=== PATIENT | female | born 1940 | race Caucasian/White ===

== ENCOUNTER 2017-05-01 10:22 | Inpatient (IN) | payer OTHER ==
[~2017-05-01] VITALS: Ht 157.5 cm; Wt 84.2 kg
[2017-05-01] MEDS ORDERED: SODIUM CHLORIDE 0.9% 1,000 ML IV ONE (10:45)
[2017-05-01] MEDS ORDERED: ISOS30TA8 PO (10:50)
[2017-05-01] MEDS ORDERED: PANT20TA3 PO (10:50)
[2017-05-01] MEDS ORDERED: SUCR1TAB PO (10:50)
[2017-05-01] MEDS ORDERED: LOSA50TA6 PO (10:50)
[2017-05-01] MEDS ORDERED: METO25TA2 PO (10:50)
[2017-05-01 10:52] VITALS: BP 154/82
[2017-05-01 11:16] LABS: HEMATOCRIT 45.1 % (34.6-47.8); HEMOGLOBIN 15.3 g/dL (11.7-16.4); WHITE BLOOD COUNT 4.7 x10^3/uL (3.4-10)
[2017-05-01 11:28] LABS: ASPARTATE AMINO TRANSFERASE 39 U/L (15-37); BLOOD UREA NITROGEN 20 mg/dL (7-18)
[2017-05-01] MEDS ORDERED: MIDAZOLAM 1 MG/ML, 5ML ONE (13:53)
[2017-05-01] MEDS ORDERED: VERAPAMIL 2.5 MG/ML, 2ML ONE (13:53)
[2017-05-01] MEDS ORDERED: FENTANYL PF 100 MCG/2ML ONE (13:53)
[2017-05-01] MEDS ORDERED: LIDOCAINE 2%, 20ML ONE (13:54)
[2017-05-01] MEDS ORDERED: HEPARIN 1,000 UNITS/ML, 10ML ONE (13:54)
[2017-05-01] MEDS ORDERED: TICAGRELOR 90 MG TABLET ONE (13:54)
[2017-05-01] MEDS ORDERED: BIVALIRUDIN 250 MG ONE (13:54)
[2017-05-01] MEDS ORDERED: SODIUM CHLORIDE 0.9% 1,000 ML IV SCH (15:30)
[2017-05-01] MEDS ORDERED: MORPHINE SULFATE 4 MG/ML, 1ML IVPush PRN (16:00)
[2017-05-01] MEDS ORDERED: SUCRALFATE 1 GM TABLET PO PRN (17:30)
[2017-05-01] MEDS: PANTOPRAZOLE 20MG TABLET PO SCH (18:15)
[2017-05-01 19:26] VITALS: BP 145/72
[2017-05-01] MEDS ORDERED: ONDANSETRON 2MG/ML, 2ML IVPush PRN (21:00)
[2017-05-01] MEDS ORDERED: ACETAMINOPHEN 325 MG TABLET PO PRN (21:00)
[2017-05-01] MEDS ORDERED: ZOLPIDEM 5MG TABLET PO PRN (21:00)
[2017-05-01] MEDS: ATORVASTATIN 80 MG TABLET PO SCH (21:10)
[2017-05-02 00:54] VITALS: BP 122/71
[2017-05-02] MEDS ORDERED: METOPROLOL SUCCINATE 25 MG TAB.ER.24H PO SCH (06:00)
[2017-05-02] MEDS ORDERED: PHENYLEPHRINE 10 MG in SODIUM CHLORIDE 0.9% 249 ML IV PRN (07:30)
[2017-05-02] MEDS ORDERED: POTASSIUM CHLORIDE 80 MEQ, SODIUM BICARBONATE 8.4% 10 MEQ, MAGNESIUM SULFATE 0.5 GM, LI... IV PRN (07:30)
[2017-05-02] MEDS ORDERED: DEXMEDETOMIDINE 200 MCG in SODIUM CHLORIDE 0.9% 48 ML IV SCH (07:30)
[2017-05-02] MEDS ORDERED: MANNITOL PMX 20% 500 ML IVPB PRN (07:30)
[2017-05-02] MEDS ORDERED: REGULAR INSULIN 62.5 UNITS in SODIUM CHLORIDE 0.9% 249.375 ML IV PRN (07:30)
[2017-05-02] MEDS ORDERED: EPINEPHRINE 2 MG in SODIUM CHLORIDE 0.9% 248 ML IV SCH (07:30)
[2017-05-02 07:36] VITALS: BP 119/71
[2017-05-02] MEDS: PANTOPRAZOLE 20MG TABLET PO SCH (08:24)
[2017-05-02] MEDS: LOSARTAN 50MG TABLET PO SCH (08:24)
[2017-05-02] MEDS ORDERED: ISOSORBIDE MONONITRATE ER 30 MG TABLET PO SCH (09:00)
[2017-05-02 13:27] VITALS: BP 111/68
[2017-05-02] MEDS ORDERED: ALBUMIN HUMAN 5% 500 ML IV ONE (15:30)
[2017-05-02] MEDS ORDERED: CHLORHEXIDINE MOUTHWASH 15 ML UDC MM PRN (15:30)
[2017-05-02] MEDS ORDERED: METOPROLOL TARTRATE 25 MG TABLET PO ONE (15:30)
[2017-05-02 16:11] LABS: HEMOGLOBIN 13.9 g/dL (11.7-16.4); WHITE BLOOD COUNT 5.1 x10^3/uL (3.4-10)
[2017-05-02 16:20] LABS: ASPARTATE AMINO TRANSFERASE 30 U/L (15-37); BLOOD UREA NITROGEN 17 mg/dL (7-18)
[2017-05-02 19:30] VITALS: BP 117/55
[2017-05-02] MEDS ORDERED: SODIUM CHLORIDE FLUSH 10ML SYR IVF SCH (21:00)
[2017-05-02] MEDS: ATORVASTATIN 80 MG TABLET PO SCH (21:52)
[2017-05-02] MEDS: MUPIROCIN OINT 2%, 22GM TP SCH (22:18)
[2017-05-02 23:27] LABS: PATH.CAST-FLAG NOT PRESENT; SPERM-FLAG NOT PRESENT; SRC-FLAG NOT PRESENT; XTAL-FLAG NOT PRESENT; YLC-FLAG NOT PRESENT
[2017-05-03] MEDS ORDERED: ALBUMIN HUMAN 5% 500 ML IV ONE (02:00)
[2017-05-03 03:20] VITALS: BP 121/76
[2017-05-03 04:23] VITALS: BP_SYST 136; BP_SYST 149; BP_DIAS 68; BP_DIAS 70
[2017-05-03] MEDS: MUPIROCIN OINT 2%, 22GM TP SCH (05:12)
[2017-05-03] MEDS: INSULIN ASPART 100 UNITS/ML, PEN SQ-INSULIN SCH (05:35)
[2017-05-03] MEDS ORDERED: FENTANYL PF 1000 MCG/20ML ONE (06:43)
[2017-05-03] MEDS ORDERED: MIDAZOLAM 10MG/2 ML ONE (06:44)
[2017-05-03] MEDS ORDERED: MANNITOL PMX 20% 500 ML IVPB PRN (07:30)
[2017-05-03] MEDS ORDERED: POTASSIUM CHLORIDE 80 MEQ, SODIUM BICARBONATE 8.4% 10 MEQ, MAGNESIUM SULFATE 0.5 GM, LI... IV PRN ×2 (07:30)
[2017-05-03] MEDS ORDERED: VANCOMYCIN 1,200 MG in SODIUM CHLORIDE 0.9% 250 ML IVPB PRN (07:30)
[2017-05-03] MEDS ORDERED: DEXMEDETOMIDINE 200 MCG in SODIUM CHLORIDE 0.9% 48 ML IV SCH (07:30)
[2017-05-03] MEDS ORDERED: EPINEPHRINE 2 MG in SODIUM CHLORIDE 0.9% 248 ML IV SCH (07:30)
[2017-05-03] MEDS ORDERED: CEFUROXIME 1.5 GM in SODIUM CHLORIDE 0.9% 50 ML IVPB PRN (07:30)
[2017-05-03] MEDS ORDERED: REGULAR INSULIN 62.5 UNITS in SODIUM CHLORIDE 0.9% 249.375 ML IV PRN ×2 (07:30→10:08)
[2017-05-03] MEDS ORDERED: PHENYLEPHRINE 10 MG in SODIUM CHLORIDE 0.9% 249 ML IV PRN ×2 (07:30→10:08)
[2017-05-03] MEDS ORDERED: AMINOCAPROIC ACID 250 MG/ML, 20ML ONE (09:37)
[2017-05-03] MEDS ORDERED: PROTAMINE SULFATE 10 MG/ML, 25ML ONE (09:37)
[2017-05-03] MEDS ORDERED: ALBUMIN HUMAN 25% 100 ML ONE (09:37)
[2017-05-03] MEDS ORDERED: HEPARIN 1,000 UNITS/ML, 30ML ONE (09:37)
[2017-05-03] MEDS ORDERED: CALCIUM CHLORIDE 10%, 10ML SYR ONE ×2 (09:37→10:19)
[2017-05-03] MEDS ORDERED: LIDOCAINE 2% 100MG/5ML SYRINGE ONE (09:38)
[2017-05-03] MEDS ORDERED: PAPAVERINE 30 MG/ML, 2ML ONE (09:38)
[2017-05-03] MEDS ORDERED: HEPARIN 1,000 UNITS/ML, 10ML ONE (09:38)
[2017-05-03] MEDS ORDERED: NITROGLYCERIN/D5W PMX 250 ML IV PRN (10:08)
[2017-05-03] MEDS ORDERED: DEXMEDETOMIDINE 200 MCG in SODIUM CHLORIDE 0.9% 48 ML IV PRN (10:08)
[2017-05-03] MEDS ORDERED: SODIUM CHLORIDE 0.9% 1,000 ML IV PRN (10:08)
[2017-05-03] MEDS ORDERED: DOBUTAMINE 250 MG in SODIUM CHLORIDE 0.9% 230 ML IV PRN (10:08)
[2017-05-03] MEDS ORDERED: ROCURONIUM 10 MG/ML ONE (10:19)
[2017-05-03] MEDS ORDERED: PROPOFOL 10 MG/ML, 20ML ONE (10:19)
[2017-05-03] MEDS: LOSARTAN 50MG TABLET PO SCH (10:29)
[2017-05-03] MEDS ORDERED: ACETAMINOPHEN 325 MG TABLET PO PRN (10:30)
[2017-05-03] MEDS ORDERED: VANCOMYCIN 900 MG in SODIUM CHLORIDE 0.9% 250 ML IVPB SCH (10:30)
[2017-05-03] MEDS ORDERED: ACETAMINOPHEN 650 MG SUPP PR PRN (10:30)
[2017-05-03] MEDS ORDERED: SODIUM BICARB 8.4%, 50ML SYRINGE IV PRN (10:30)
[2017-05-03] MEDS ORDERED: PROCHLORPERAZINE 5 MG/ML, 2ML IVPush PRN (10:30)
[2017-05-03] MEDS ORDERED: DEXTROSE 4 GM TAB.CHEW PO PRN (10:30)
[2017-05-03] MEDS ORDERED: DEXTROSE 50%, 50ML SYRINGE IVPush PRN (10:30)
[2017-05-03] MEDS ORDERED: EPINEPHRINE 2 MG in SODIUM CHLORIDE 0.9% 248 ML IV PRN (10:30)
[2017-05-03] MEDS ORDERED: MEPERIDINE/PF 25MG/0.5ML IVPush PRN (10:30)
[2017-05-03] MEDS ORDERED: MIDAZOLAM 1 MG/ML, 5ML IVPush PRN (10:30)
[2017-05-03] MEDS ORDERED: GLUCAGON 1 MG IM PRN (10:30)
[2017-05-03] MEDS ORDERED: LACTATED RINGERS 500 ML IVBOLUS PRN (10:30)
[2017-05-03] MEDS ORDERED: CEFUROXIME 1.5 GM in SODIUM CHLORIDE 0.9% 50 ML IVPB SCH (10:30)
[2017-05-03] MEDS ORDERED: BISACODYL 10 MG SUPP PR PRN (10:30)
[2017-05-03] MEDS ORDERED: BISACODYL 5 MG EC TABLET PO PRN (10:30)
[2017-05-03] MEDS: MAGNESIUM SULFATE 1 GM in SODIUM CHLORIDE 0.9% 50 ML IVPB SCH (10:37)
[2017-05-03 11:07] LABS: ABG COLLECTION SITE ARTERIAL LINE
[2017-05-03 11:08] LABS: FIO2 40 %
[2017-05-03 11:20] LABS: HEMATOCRIT 32.9 % (34.6-47.8)
[2017-05-03] MEDS: KSCALE TO 4.5 IV SCH ×3 (11:30→22:30)
[2017-05-03] MEDS ORDERED: MORPHINE SULFATE 4 MG/ML, 1ML ONE ×2 (15:29→17:46)
[2017-05-03] MEDS: morphine SULFATE 10 MG/ML, 1ML IVPush PRN ×2 (15:31→18:17)
[2017-05-03 16:27] LABS: HEMATOCRIT 34.1 % (34.6-47.8); HEMOGLOBIN 11.4 g/dL (11.7-16.4)
[2017-05-03] MEDS: OXYcodone IR 5MG TABLET PO PRN ×2 (17:21→22:26)
[2017-05-03] MEDS: CEFUROXIME 1.5 GM in SODIUM CHLORIDE 0.9% 50 ML IV SCH (19:31)
[2017-05-03] MEDS: DOCUSATE 100 MG CAPSULE PO SCH (20:01)
[2017-05-03] MEDS: HYDROcodone/APAP 10/325 MG TABLET PO PRN (20:01)
[2017-05-03] MEDS: VANCOMYCIN 900 MG in SODIUM CHLORIDE 0.9% 250 ML IVPB SCH (20:01)
[2017-05-03] MEDS: SODIUM CHLORIDE FLUSH 10ML SYR IVF SCH (20:01)
[2017-05-03] MEDS: MUPIROCIN OINT 2%, 22GM NAS SCH (20:01)
[2017-05-03] MEDS: ATORVASTATIN 80 MG TABLET PO SCH (21:33)
[2017-05-03 22:31] LABS: HEMATOCRIT 33.7 % (34.6-47.8); HEMOGLOBIN 11.4 g/dL (11.7-16.4)
[2017-05-04] MEDS: ONDANSETRON 2MG/ML, 2ML IVPush PRN ×2 (00:39→08:59)
[2017-05-04] MEDS: HYDROcodone/APAP 10/325 MG TABLET PO PRN ×2 (00:39→03:59)
[2017-05-04] MEDS: INSULIN ASPART 100 UNITS/ML, PEN SQ-INSULIN PRN ×4 (01:36→21:00)
[2017-05-04 04:05] LABS: ABG COLLECTION SITE NOT DOCUMENTED
[2017-05-04 04:11] LABS: HEMATOCRIT 33.9 % (34.6-47.8); HEMOGLOBIN 11.4 g/dL (11.7-16.4); WHITE BLOOD COUNT 9.6 x10^3/uL (3.4-10)
[2017-05-04 04:19] LABS: BLOOD UREA NITROGEN 19 mg/dL (7-18)
[2017-05-04] MEDS: KSCALE TO 4.5 IV SCH (04:30)
[2017-05-04] MEDS: OXYcodone IR 5MG TABLET PO PRN ×4 (06:00→20:54)
[2017-05-04] MEDS: CEFUROXIME 1.5 GM in SODIUM CHLORIDE 0.9% 50 ML IV SCH (07:18)
[2017-05-04] MEDS: VANCOMYCIN 900 MG in SODIUM CHLORIDE 0.9% 250 ML IVPB SCH (07:23)
[2017-05-04] MEDS ORDERED: MAGNESIUM HYDROXIDE 8%, 30ML UDC PO PRN (08:00)
[2017-05-04] MEDS: LOSARTAN 50MG TABLET PO SCH (08:40)
[2017-05-04] MEDS: PANTOPRAZOLE 40 MG IV IVPush SCH (08:40)
[2017-05-04] MEDS: DOCUSATE 100 MG CAPSULE PO SCH ×2 (08:40→20:54)
[2017-05-04] MEDS: ASPIRIN 81 MG TABLET EC PO SCH (08:40)
[2017-05-04] MEDS: METOPROLOL TARTRATE 25 MG TABLET PO/NG SCH ×2 (08:40→21:00)
[2017-05-04] MEDS: MUPIROCIN OINT 2%, 22GM NAS SCH ×2 (08:41→20:54)
[2017-05-04] MEDS: SODIUM CHLORIDE FLUSH 10ML SYR IVF SCH ×3 (08:42→21:00)
[2017-05-04] MEDS: FUROSEMIDE 20 MG/2 ML IV SCH (08:42)
[2017-05-04] MEDS: CHLORHEXIDINE MOUTHWASH 15 ML UDC MM SCH ×2 (08:51→20:55)
[2017-05-04] MEDS: MAGNESIUM SULFATE 1 GM in SODIUM CHLORIDE 0.9% 50 ML IVPB SCH (10:00)
[2017-05-04] MEDS: INSULIN ASPART 100 UNITS/ML, PEN SQ-INSULIN SCH (10:11)
[2017-05-04] MEDS ORDERED: GLUCAGON 1 MG IM PRN (19:30)
[2017-05-04] MEDS ORDERED: BISACODYL 5 MG EC TABLET PO PRN (19:30)
[2017-05-04] MEDS ORDERED: ACETAMINOPHEN 650 MG SUPP PR PRN (19:30)
[2017-05-04] MEDS ORDERED: ACETAMINOPHEN 325 MG TABLET PO PRN (19:30)
[2017-05-04] MEDS ORDERED: BISACODYL 10 MG SUPP PR PRN (19:30)
[2017-05-04 20:50] VITALS: BP 105/58
[2017-05-04] MEDS: ATORVASTATIN 80 MG TABLET PO SCH (20:54)
[2017-05-04] MEDS ORDERED: SODIUM CHLORIDE FLUSH 10ML SYR IVF SCH (21:00)
[2017-05-05] MEDS: OXYcodone IR 5MG TABLET PO PRN ×4 (00:25→19:46)
[2017-05-05 03:24] VITALS: BP 117/63
[2017-05-05 04:27] LABS: BLOOD UREA NITROGEN 22 mg/dL (7-18)
[2017-05-05 04:30] LABS: HEMATOCRIT 33.3 % (34.6-47.8); HEMOGLOBIN 11.4 g/dL (11.7-16.4)
[2017-05-05 06:37] VITALS: BP 95/57
[2017-05-05] MEDS: SODIUM CHLORIDE FLUSH 10ML SYR IVF SCH ×4 (08:31→19:47)
[2017-05-05] MEDS: DOCUSATE 100 MG CAPSULE PO SCH ×2 (08:31→19:46)
[2017-05-05] MEDS: PANTOPRAZOLE 40 MG IV IVPush SCH (08:31)
[2017-05-05] MEDS: MUPIROCIN OINT 2%, 22GM NAS SCH ×2 (08:32→19:47)
[2017-05-05] MEDS: LOSARTAN 50MG TABLET PO SCH ×2 (08:32→11:05)
[2017-05-05] MEDS: ASPIRIN 81 MG TABLET EC PO SCH (08:32)
[2017-05-05] MEDS: FUROSEMIDE 20 MG/2 ML IV SCH (08:32)
[2017-05-05] MEDS: METOPROLOL TARTRATE 25 MG TABLET PO/NG SCH ×2 (08:35→21:00)
[2017-05-05] MEDS: ENOXAPARIN 40 MG/0.4 ML SQ SCH (08:37)
[2017-05-05] MEDS: INSULIN ASPART 100 UNITS/ML, PEN SQ-INSULIN SCH ×3 (08:48→21:30)
[2017-05-05] MEDS ORDERED: POTASSIUM CHLORIDE 10 MEQ TABLET.ER PO SCH (09:00)
[2017-05-05] MEDS ORDERED: FUROSEMIDE 20 MG/2 ML IV SCH (09:00)
[2017-05-05] MEDS: CHLORHEXIDINE MOUTHWASH 15 ML UDC MM SCH ×2 (11:05→21:29)
[2017-05-05] MEDS: ONDANSETRON 2MG/ML, 2ML IVPush PRN (11:05)
[2017-05-05] MEDS: MAGNESIUM SULFATE 1 GM in SODIUM CHLORIDE 0.9% 50 ML IVPB SCH (11:05)
[2017-05-05 13:03] VITALS: BP_SYST 104; BP_SYST 92; BP_DIAS 56; BP_DIAS 62
[2017-05-05 19:35] VITALS: BP 105/57
[2017-05-05] MEDS: ATORVASTATIN 80 MG TABLET PO SCH (19:46)
[2017-05-05 21:33] VITALS: BP_SYST 72; BP_SYST 76; BP_DIAS 33; BP_DIAS 42
[2017-05-05] MEDS ORDERED: SODIUM CHLORIDE 0.9%, 500ML IVBOLUS ONE (22:00)
[2017-05-05 22:15] VITALS: BP 90/53
[2017-05-06 00:51] VITALS: BP 95/54
[2017-05-06 05:03] VITALS: BP 101/59
[2017-05-06] MEDS: OXYcodone IR 5MG TABLET PO PRN (05:04)
[2017-05-06 05:50] LABS: BLOOD UREA NITROGEN 47 mg/dL (7-18)
[2017-05-06 07:36] VITALS: BP 94/56
[2017-05-06] MEDS: SODIUM CHLORIDE FLUSH 10ML SYR IVF SCH ×4 (08:02→22:42)
[2017-05-06] MEDS: ENOXAPARIN 40 MG/0.4 ML SQ SCH (08:03)
[2017-05-06] MEDS: MUPIROCIN OINT 2%, 22GM NAS SCH ×2 (08:03→22:43)
[2017-05-06] MEDS: DOCUSATE 100 MG CAPSULE PO SCH ×2 (08:04→22:44)
[2017-05-06] MEDS: ASPIRIN 81 MG TABLET EC PO SCH (08:04)
[2017-05-06] MEDS: PANTOPROZOLE 40MG TABLET PO SCH (08:04)
[2017-05-06] MEDS: CLOPIDOGREL 75 MG TABLET PO SCH (08:04)
[2017-05-06] MEDS: METOPROLOL TARTRATE 25 MG TABLET PO/NG SCH ×2 (08:08→22:44)
[2017-05-06] MEDS: SODIUM CHLORIDE 0.9% 500 ML IV SCH ×4 (08:09→23:30)
[2017-05-06] MEDS ORDERED: FUROSEMIDE 20 MG/2 ML IV SCH (09:00)
[2017-05-06] MEDS ORDERED: CLOPIDOGREL 75 MG TABLET PO SCH (09:00)
[2017-05-06 14:54] VITALS: BP 106/61
[2017-05-06] MEDS: ONDANSETRON 2MG/ML, 2ML IVPush PRN (18:04)
[2017-05-06 19:53] VITALS: BP 107/61
[2017-05-06] MEDS: ATORVASTATIN 80 MG TABLET PO SCH (22:44)
[2017-05-06 22:55] VITALS: BP 120/67
[2017-05-07 00:34] VITALS: BP 112/68
[2017-05-07] MEDS: HYDROcodone/APAP 10/325 MG TABLET PO PRN (04:21)
[2017-05-07 04:50] LABS: BLOOD UREA NITROGEN 46 mg/dL (7-18)
[2017-05-07 07:05] VITALS: BP_SYST 106; BP_SYST 94; BP_DIAS 59; BP_DIAS 63
[2017-05-07] MEDS: SODIUM CHLORIDE FLUSH 10ML SYR IVF SCH ×4 (09:00→21:45)
[2017-05-07] MEDS: ASPIRIN 81 MG TABLET EC PO SCH (09:20)
[2017-05-07] MEDS: DOCUSATE 100 MG CAPSULE PO SCH ×2 (09:20→22:20)
[2017-05-07] MEDS: METOPROLOL TARTRATE 25 MG TABLET PO/NG SCH ×2 (09:20→22:20)
[2017-05-07] MEDS: ENOXAPARIN 30 MG/0.3 ML SQ SCH (09:20)
[2017-05-07] MEDS: MUPIROCIN OINT 2%, 22GM NAS SCH ×2 (09:20→22:20)
[2017-05-07] MEDS: PANTOPROZOLE 40MG TABLET PO SCH (09:21)
[2017-05-07] MEDS: CLOPIDOGREL 75 MG TABLET PO SCH (09:21)
[2017-05-07 15:01] VITALS: BP 112/57
[2017-05-07 19:27] VITALS: BP 126/70
[2017-05-07 21:45] VITALS: BP 117/80
[2017-05-07] MEDS: ATORVASTATIN 80 MG TABLET PO SCH (22:20)
[2017-05-08] MEDS: HYDROcodone/APAP 10/325 MG TABLET PO PRN (00:25)
[2017-05-08 00:30] VITALS: BP 138/70
[2017-05-08 06:47] LABS: BLOOD UREA NITROGEN 34 mg/dL (7-18)
[2017-05-08 08:21] VITALS: BP 134/70
[2017-05-08] MEDS: SODIUM CHLORIDE FLUSH 10ML SYR IVF SCH ×2 (08:27→08:28)
[2017-05-08] MEDS: MUPIROCIN OINT 2%, 22GM NAS SCH (08:27)
[2017-05-08] MEDS: ENOXAPARIN 30 MG/0.3 ML SQ SCH (08:28)
[2017-05-08] MEDS: METOPROLOL TARTRATE 25 MG TABLET PO/NG SCH (08:29)
[2017-05-08] MEDS: DOCUSATE 100 MG CAPSULE PO SCH (08:29)
[2017-05-08] MEDS: ASPIRIN 81 MG TABLET EC PO SCH (08:29)
[2017-05-08] MEDS: CLOPIDOGREL 75 MG TABLET PO SCH (08:29)
[2017-05-08] MEDS: PANTOPROZOLE 40MG TABLET PO SCH (08:29)
[2017-05-08] MEDS ORDERED: DOCU-131 PO (09:10)
[2017-05-08] MEDS ORDERED: ATOR-2 PO (09:10)
[2017-05-08] MEDS ORDERED: CLOP75TA PO (09:10)
[2017-05-08] MEDS ORDERED: METO25TA35 PO/NG (09:10)
[2017-05-08] MEDS ORDERED: ASPI-621 PO (09:10)
[2017-05-08 14:34] VITALS: BP 123/70
[2017-05-08] MEDS ORDERED: HYDR-3240 PO (15:40)
== END 2017-05-08 16:16 | disposition home health service (06) | DRG 233 ==
LOC: CACL 10:22 → 5SO 17:04 → CACL 20:57 → CCU 05-03 07:00 → CSU 05-03 08:49 → 5SO 05-04 16:29 → DCLOUNGE 05-08 15:25
PROVIDERS: ADMIT Internal Medicine Cardiovascular Disease; ATTEND Internal Medicine Cardiovascular Disease
PROC: 4A023N7 Measurement of Cardiac Sampling and Pressure, Left Heart, Percutaneous Approach (ICD-10-PCS; principal; 2017-05-01)
PROC: B211YZZ Fluoroscopy of Multiple Coronary Arteries using Other Contrast (ICD-10-PCS; 2017-05-01)
PROC: 02100Z9 Bypass Coronary Artery, One Artery from Left Internal Mammary, Open Approach (ICD-10-PCS; 2017-05-03)
PROC: 021009W Bypass Coronary Artery, One Artery from Aorta with Autologous Venous Tissue, Open Approach (ICD-10-PCS; 2017-05-03)
PROC: 06BQ4ZZ Excision of Left Saphenous Vein, Percutaneous Endoscopic Approach (ICD-10-PCS; 2017-05-03)
PROC: 5A1221Z Performance of Cardiac Output, Continuous (ICD-10-PCS; 2017-05-03)
PROC: B246ZZ4 Ultrasonography of Right and Left Heart, Transesophageal (ICD-10-PCS; 2017-05-06)
DX: I25.110 Atherosclerotic heart disease of native coronary artery with unstable angina pectoris (principal); I50.31 Acute diastolic (congestive) heart failure; R06.89 Other abnormalities of breathing; I10 Essential (primary) hypertension; E78.5 Hyperlipidemia, unspecified; E66.9 Obesity, unspecified; K21.9 Gastro-esophageal reflux disease without esophagitis; I95.1 Orthostatic hypotension; Z87.891 Personal history of nicotine dependence; Z90.710 Acquired absence of both cervix and uterus
CPT/HCPCS: 36415; 36600; 71010; 71020; 80048; 80053; 81001; 82040; 82330; 82800; 82803; 82810; 82947; 82962; 83036; 83735; 84132; 84295; 85014; 85018; 85025; 85049; 85347; 85610; 85730; 86850; 86900; 86923; 87081; 93005; 93306; 93312; 93321; 93325; 93458; 93880; 94002; 94150; 99156; C1894; J0583; J0697; J1644; J1650; J1815; J2250; J2405; J2704; J2720; J3010; J3370; J3475; J3480; J3490; P9045; P9047; C1751; C1760; C9113; J0171; J1940; J2270; J2370; J2440; J7030; J7040; J7050; Q9967

== ENCOUNTER → 2018-07-01 | Outpatient (CLI) | payer OTHER ==
[~2018-07-01] MED LIST: ASPI-621 PO; ATOR-2 PO; CLOP75TA PO; DOCU-131 PO; HYDR-3240 PO; ISOS30TA8 PO; LOSA50TA7 PO; METO25TA2 PO; METO25TA35 PO/NG; PANT20TA3 PO; SUCR1TAB PO
== END | disposition home or self-care (01) ==
LOC: CFH 08:01
PROVIDERS: ATTEND Internal Medicine Cardiovascular Disease
DX: I07.1 Rheumatic tricuspid insufficiency (principal); I35.8 Other nonrheumatic aortic valve disorders; I34.8 Other nonrheumatic mitral valve disorders; I10 Essential (primary) hypertension; E78.5 Hyperlipidemia, unspecified; C55 Malignant neoplasm of uterus, part unspecified
CPT/HCPCS: 78452; 93017; 93306; A9502

== ENCOUNTER 2019-07-27 12:52 | Outpatient (CLI) | payer MEDICARE ==
[~2019-07-27 12:52] MED LIST changes: -ASPI-621 PO; +ASPI81TA45 PO; +LOSA50TA14 PO; -LOSA50TA7 PO
== END 2019-07-27 23:59 | disposition home or self-care (01) ==
LOC: CFH 12:52
PROVIDERS: ATTEND Registered Nurse
DX: R07.9 Chest pain, unspecified (principal)
CPT/HCPCS: 78452; 93017; A9502

== ENCOUNTER → 2020-03-17 | Outpatient (CLI) | payer MEDICARE | END | disposition home or self-care (01) | LOC: CFH 08:20 | PROVIDERS: ATTEND Nurse Practitioner Family | DX: I08.3 Combined rheumatic disorders of mitral, aortic and tricuspid valves (principal); R01.1 Cardiac murmur, unspecified | CPT/HCPCS: 93306 ==

== ENCOUNTER → 2020-07-04 | Outpatient (CLI) | payer MEDICARE ==
[~2020-07-04] MED LIST changes: -PANT20TA3 PO; +PANT20TA4 PO
== END | disposition home or self-care (01) ==
LOC: CVU 07:53
PROVIDERS: ATTEND Internal Medicine Cardiovascular Disease
DX: R60.0 Localized edema (principal)
CPT/HCPCS: 93971